=== PATIENT | female | born 1995 | race Caucasian/White ===

== ENCOUNTER 2020-10-25 15:24 | Emergency (ER) | payer BC, OTHER ==
--- NOTE | 2020-10-25 17:31 | ER ---
Nurse's Notes [facility] Name: Jeane Dawson Age: 25 yrs Sex: Female : 1995 Arrival Date: 10/25/2020 Time: 15:29 Bed Waiting Private MD: Diagnosis: Presentation: 10/25 16:22 Chief complaint: Patient states: i had a high blood pressure episode was Thursday, then tw2 yesterday at 2:30 my LEFT leg has been numb and my left leg is swollen and it feels like it has a kelly horse in it, i have been monitoring my blood pressure. Coronavirus screen: At this time, the client does not indicate any symptoms associated with coronavirus-19. Ebola Screen: Patient denies travel to an Ebola-affected area in the 21 days before illness onset. Initial Sepsis Screen: Does the patient meet any 2 criteria? HR > 90 bpm. No. Patient's initial sepsis screen is negative. Does the patient have a suspected source of infection? No. Patient's initial sepsis screen is negative. Risk Assessment: Do you want to hurt yourself or someone else? Patient reports no desire to harm self or others. Onset of symptoms was October 25, 2020. 16:22 Method Of Arrival: Ambulatory tw2 16:22 Acuity: ALLY 3 tw2 Triage Assessment: 16:28 General: Appears in no apparent distress. obese, well groomed, Behavior is calm, tw2 cooperative, appropriate for age. Pain: Complains of pain in left leg. 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 - Social history:: Smoking status: . Vital Signs: 16:22 BP 126 / 94; Pulse 91; Resp 18; Temp 97.8(TE); Pulse Ox 100% on R/A; Weight 106.59 kg tw2 (R); Height 5 ft. 9 in. (175.26 cm); Pain 7/10; 16:22 Body Mass Index 34.70 (106.59 kg, 175.26 cm) tw2 ED Course: 15:29 Patient arrived in ED. mr 16:24 Triage completed. tw2 16:27 Arm band placed on. tw2 Administered Medications: No medications were administered Outcome: 17:30 Patient left the ED. tw2 Signatures: Toyin Ballesteros mr Kelsy Desir, RN RN tw2
[2020-10-25 17:35] VITALS: BP 126/94; TEMP 97.8; O2SAT 100
== END 2020-10-25 17:30 | disposition left against medical advice (07) ==
LOC: ER 15:24
DX: Z53.21 Procedure and treatment not carried out due to patient leaving prior to being seen by health care provider (principal)
CPT/HCPCS: 99281